=== PATIENT | male | born 1965 | race Caucasian/White ===

== ENCOUNTER 2024-07-12 11:48 | Emergency (ER) | payer OTHER, SELFPAY ==
[2024-07-12 11:57] VITALS: BP 115/66
[2024-07-12 12:15] LABS: % Basophils 0.3 % (0-2); % Eosinophils 1.8 % (0-6); % Immature Granulocytes 0.3 % (0-0.5); % Lymphocytes 26.7 % (20.5-51.1); % Monocytes 9.8 % (1.7-9.3); % Neutrophils 61.1 % (42.2-75.2); Absolute Eosinophils 0.1 10^3/uL (0-0.7); Absolute Lymphocytes 1.9 10^3/uL (1.2-3.4); Absolute Monocytes 0.7 10^3/uL (0.1-0.6); Absolute Neutrophils 4.3 10^3/uL (1.4-6.5); Hematocrit 38.8 % (39.0-52.0); Hemoglobin 13.8 g/dL (13.0-18.0); Mean Corp Hgb Conc. 35.6 g/dL (33.0-37.0); Mean Corpuscular Hgb 31.9 pg (27.0-31.0); Mean Corpuscular Volume 89.6 fL (80.0-94.0); Mean Platelet Volume 8.8 fL (7.4-10.4); Nucleated Red Blood Cells % 0 % (-); Platelet Count 193 10^3/uL (130-400); Red Blood Cell Count 4.33 10^6/uL (4.70-6.10); Red Cell Dist. Width 13.7 % (11.5-14.5); White Blood Cell Count 7.1 10^3/uL (4.8-10.8)
[2024-07-12 12:43] LABS: Troponin I < 0.012 ng/ml
[2024-07-12 13:20] LABS: ALT (SGPT) 24 U/L (0-50); AST (SGOT) 19 U/L (17-59); Albumin 3.7 g/dl (3.5-5.0); Alkaline Phosphatase 91 U/L (38-126); Blood Urea Nitrogen 27 mg/dl (9-20); Carbon Dioxide 25 mmol/L (22-30); Chloride 108 mmol/L (98-107); Glucose 96 mg/dl (70-99); Potassium 4.2 mmol/L (3.5-5.1); Sodium 139 mmol/L (135-145); Total Bilirubin 0.3 mg/dl (0.2-1.3); Total Protein 6.3 g/dl (6.3-8.2); eGFR > 60.00
[2024-07-12 13:50] VITALS: BP 120/42
[2024-07-12 13:51] VITALS: BP 120/42
--- NOTE | 2024-07-12 13:59 | ED.GENMED ---
History of Present Illness
General
Chief Complaint: Chest Pain
Source: patient
Exam Limitations: none
Time Seen by Provider: 07/12/24 13:54
Nursing documentation reviewed up to this point in time: agreed with
History of Present Illness
History of Present Illness:
Patient is a 59-year-old male with past medical history of hyperlipidemia who presented to the ER for evaluation of chest pain. Patient reports he started with chest pain last night around 10 PM while walking from a restaurant to his car. He did
just get an eating spicy pizza when symptoms occur. He reports he had pain all throughout the night and presented with persistent comfort today which is what prompted him to come to the ER. He did speak with his family doctor who advised him to
come. He reports pain is more of a pressure and is approximately 2�3 out of 10. He denies any associated shortness of breath. He denies any radiation. He denies any associated abdominal pain. He does not have a history of reflux this does not
feel like reflux. He denies any injury.
Review of Systems
Review of Systems
Allergies reviewed?: Yes
All Other Systems: ROS reviewed and negative except as documented in HPI and ROS
Constitutional: Reports no symptoms
Respiratory: Reports no symptoms; Denies trouble breathing
Cardiac: Reports chest pain; Denies diaphoresis, palpitations or syncope
ABD/GI: Reports no symptoms
: Reports no symptoms
Musculoskeletal: Reports no symptoms
Skin: Reports no symptoms
Neurological: Reports no symptoms
Psychiatric: Reports no symptoms
Phy Exam
General Physical Exam
General Presentation: well appearing
General age: appears stated age
General Skin: warm and dry
General Habitus: normal
General Mental: alert
General Hydration: appears well hydrated
Cardiovascular Exam
Cardiovascular Exam: regular rate/rhythm, no murmur and normal peripheral pulses
Pulmonary Exam
Pulmonary Exam: lungs clear and no respiratory distress
Gastrointestinal Exam
Gastrointestinal Exam: non tender and soft
Musculoskeletal Exam
Musculoskeletal Exam: full ROM
Skin Exam
Skin Exam: normal color and warm/dry
Psychiatric Exam
Psychiatric Exam: normal mood/affect
Scores
Heart Score for Chest Pain Patients
STEMI patient?: Not applicable
Course
Orders/Labs/Results
Orders:
Orders
07/12/24 11:49
Electrocardiogram (*1) Urgent
Reason for Study: Chest Pain
EKG- Treatment ONCE
07/12/24 12:01
CR Chest - 2 Views Urgent
Comment:
Reason For Exam: chest pain
07/12/24 12:05
Complete Blood Count/With Diff Urgent
Comprehensive Metabolic Panel Urgent
Troponin I Urgent
07/12/24 14:11
0.9% Sodium Chloride 1000 ml [Nss] 1,000 ml IV BOLUS
07/12/24 14:12
EKG- Treatment ONCE
IV Insert/Care/Rem.- Treatment PRN
Ketorolac [Toradol] 15 mg IV NOW STA
07/12/24 14:37
Troponin I Urgent
07/12/24 15:00
Electrocardiogram (*1) Stat
Reason for Study: Other
Other Reason for Exam: chest pain
Abnormal Lab Results
07/12/24
12:05
RBC 4.33 L 10^6/uL
(4.70-6.10)
Hct 38.8 L %
(39.0-52.0)
MCH 31.9 H pg
(27.0-31.0)
Absolute Monos (auto) 0.7 H 10^3/uL
(0.1-0.6)
Monocytes % 9.8 H %
(1.7-9.3)
Chloride 108 H mmol/L
(98-107)
BUN 27 H mg/dl
(9-20)
07/12/24 12:05
07/12/24 12:05
Vital Signs
Initial and Last Documented VS:
Initial Vital Signs
Temp Pulse Resp BP Pulse Ox
98.0 F 76 16 115/66 98
07/12/24 11:57 07/12/24 11:57 07/12/24 11:57 07/12/24 11:57 07/12/24 11:57
Last Documented Vital Signs
Temp Pulse Resp BP Pulse Ox
98.0 F 62 18 118/65 97
07/12/24 11:57 07/12/24 15:10 07/12/24 15:10 07/12/24 15:10 07/12/24 15:10
MDM/Problems Addressed
MDM/Problems Addressed:
As documented patient is a 59-year-old male who presented with chest pain. Patient reports he has had more of a constant chest pain since last night around 10 PM. On arrival patient reports it was minimally there he was given Toradol which did
relieve his symptoms. Patient was monitored here and had 2 cardiac troponins which were negative and no acute findings and EKG or chest x-ray. He is no acute distress and chest pain-free he does have a history of hyperlipidemia he is overweight.
His mom did have cardiac history. Will place on chest pain hotline. He has no associated shortness of breath he is not hypoxic nontachycardic lungs are clear no concerning evidence for PE or dissection.
*Radiology
Radiology exam reviewed: radiology read reviewed
*Pulse Oximetry
Patient hypoxic: no
*EKG
Interpreted by ED Provider?: Yes
Interpretation: normal
Heart Rate: 65
Rate: normal
Rhythm: sinus
Ischemia: other (repeat EKG unchanged )
*Critical Care Note
Total Time (30-74mins, 75-104mins- exclusive of procedures): Not Applicable
ED Attending Note
-
Portions of this chart may have been created with voice recognition software.� Occasional wrong word or��sound alike� substitutions may have occurred due to the inherent limitations of voice recognition software.
Discharge Plan
Departure
Patient Disposition: Home (Routine Discharge)
Date of Disposition: 07/12/24
Time of Disposition: 15:54
Patient with high blood pressure during this ER visit?: No
Condition: Fair
Covid-19: Not Applicable
Discharge Problem:
Chest pain
Instructions: Chest Pain [facility] Follow Up
Referrals:
Rob Dominguez MD [Active] -
Ashvin Barrientos MD [Family Provider] -
Activity Restrictions/Additional Instructions:
As discussed you were seen here today for chest pain and placed on the chest pain hotline. You should receive a phone call from cardiology office in the next several days however if you do not, please call the office to schedule an
appointment soon as possible.
Please increased fluid intake.
Return if any worsening of symptoms.
Interventions
Interventions:
*Risk Screen - Suicide Last Done: 07/12/24 12:00
*General Assessment Last Done: 07/12/24 12:00
*Neglect/Abuse Screening Last Done: 07/12/24 12:00
*ED- Fall Risk Assessment Last Done: 07/12/24 13:54
*ED COVID-19 Vaccine History Last Done: 07/12/24 13:54
ED- Cardiac Assessment Last Done: 07/12/24 13:54
Discharge Date and Time
Print Language: [id number]
[2024-07-12] MEDS: TORADOL 15 MG IV (14:39)
[2024-07-12] MEDS: NSS 1000 IV (14:40)
[2024-07-12 15:10] VITALS: BP 118/65
[2024-07-12 15:12] LABS: Troponin I < 0.012 ng/ml
[2024-07-12 16:11] VITALS: BP 110/60
== END 2024-07-12 16:14 | disposition home or self-care (01) ==
LOC: EMR 11:48
PROVIDERS: Nurse Practitioner; Student in an Organized Health Care Education/Training Program; EMERGENCY PHYSICIAN Emergency Medicine; FAMILY PHYSICIAN Family Medicine
DX: R07.9 Chest pain, unspecified (principal); E78.5 Hyperlipidemia, unspecified; E66.3 Overweight
CPT/HCPCS: 96374; 96361; 99285; 71046; 80053; 84484; 85025; 93005